=== PATIENT | female | born 1980 | race Caucasian/White ===

== ENCOUNTER 2017-02-13 09:30 | Inpatient (IN) | payer OTHER, SELFPAY ==
[2017-02-13] MEDS ORDERED: Acetaminophen 500 MG TAB ONE (10:02)
[2017-02-13] MEDS ORDERED: Ketorolac Tromethamine 30 MG/ML VIAL ONE (10:02)
--- NOTE | 2017-02-13 10:16 | RAD ---
AP VIEW OF THE CHEST: INDICATION: Concern for renal infection, chest pain, and chronic back pain. FINDINGS/IMPRESSION: Lungs are clear. Cardiomediastinal silhouette is normal. No acute osseous abnormality is evident. Exam is not appreciably changed from the comparison dated 02/14/16. POS: [facility]
[2017-02-13] MEDS ORDERED: Azithromycin 500 MG in Sodium Chloride 0.9% 250 ML 250 ML IVPB ONE (10:30)
[2017-02-13 10:34] LABS: #Lymphocytes 0.5 thou/uL (1.20-3.40); #Monocytes 0.6 thou/uL (0.11-0.59); #Neutrophils 5.1 thou/uL (1.40-6.50); %Basophils 0.4 % (0.0-1.0); %Eosinophils 0.6 % (0.0-10.0); %Lymphocytes 7.9 % (21.0-51.0); %Monocytes 9.7 % (0.0-10.0); Hematocrit 41.8 % (36.0-47.0); Mean Platelet Volume 6.6 fL (7.4-10.4); White Blood Cell (WBC) Count 6.3 thou/uL (4.8-10.8)
[2017-02-13 10:39] LABS: Bilirubin Negative (Negative); Blood, Urine Moderate (Negative); Glucose, Urine (Dipstick) Negative (Negative); Ketone, Urine Negative (Negative); Nitrite Negative (Negative); Protein, Urine (Dipstick) Negative (Neg-Trace); Urobilinogen 0.2 mg/dL (0.2-1.0)
[2017-02-13 10:42] LABS: Bacteria/HPF None Seen HPF (None Seen); Hyaline Casts/LPF 0-3 HYALINE CAST LPF (0-3 Hyaline); WBC/HPF 0-3 HPF (0-3)
[2017-02-13 10:43] LABS: Lactic Acid - Sepsis 2.3 mmol/L (0.5-2.2)
[2017-02-13 10:47] LABS: ALT (SGPT) 21 U/L (8-55); AST (SGOT) 18 U/L (5-34); Alkaline Phosphatase 71 U/L (40-150); Anion Gap 14 mmol/L (10-20); BUN (Urea Nitrogen) 9 mg/dL (7.0-18.7); Bilirubin, Total 0.3 mg/dL (0.2-1.2); CK (CPK) 111 U/L (29-168); Calc. Creatinine Clearance 0 mL/min (70-130); Carbon Dioxide 27 mmol/L (22-29); Chloride 101 mmol/L (98-107); Estimated GFR-MDRD Greater than 90; Globulin 2.6 g/dL (2.4-3.5); Lipase 38 U/L (8-78); Protein, Total 6.7 g/dL (6.0-8.3)
[2017-02-13 10:51] LABS: Troponin I Less than 0.010 ng/mL (< 0.028)
[2017-02-13] MEDS ORDERED: Piperacillin/Tazobactam 3.375 GM in Sodium Chloride 0.9% 100 ML IVPB ONE (13:00)
[2017-02-13] MEDS ORDERED: Ondansetron HCl/PF 4 MG/2 ML Vial ONE (14:24)
[2017-02-13] MEDS ORDERED: Ondansetron HCl/PF 4 MG/2 ML Vial IVP PRN (17:55)
[2017-02-13] MEDS ORDERED: Loperamide HCl 2 MG CAP PO PRN (17:55)
[2017-02-13] MEDS: Acetaminophen 325 MG TAB PO PRN (18:09)
[2017-02-13] MEDS: Sodium Chloride 0.9% 1,000 ML IV SCH (18:09)
[2017-02-13 18:16] VITALS: BMI 23.7
--- NOTE | 2017-02-13 20:24 | HP ---
DATE OF ADMISSION: 02/13/2017 CHIEF COMPLAINT: Fever, cough, generalized weakness, muscle aches, and diarrhea. HISTORY OF PRESENT ILLNESS: The patient is a 36-year-old female, who started getting sick yesterday with feeling bad and some productive cough with mucus mostly fever up to 102.3 and chills, some nausea, no vomiting, no abdominal pain. She started having watery diarrhea while in the emergen cy room and also she complains about a lot of muscle aches all over her body and a sore throat and so me nasal congestion. She was admitted to this hospital and she had full-blown sepsis just recently a nd because of a hypotension, she presented with tachycardia. We decided to admit her for observation . PAST MEDICAL HISTORY: 1. Frequent urinary tract infection. 2. Migraine headaches. 3. Chronic low back pain. 4. Pyelonephritis. PAST SURGICAL HISTORY: 1. Back surgery x5: 2. Repair of the ureter. 3. History of lung puncture. ALLERGIES: DEMEROL. SOCIAL HISTORY: She smokes half a pack per day for at least 20 years. She denies any alcohol use or illicit drug use. FAMILY HISTORY: Father had lung cancer and he at the age of 54 and the mother has breast cancer . MEDICATIONS: None. REVIEW OF SYSTEMS: CONSTITUTIONAL: Positive for fever and chills. ENT: Positive for nasal congestion and sore throat. CARDIOVASCULAR: Negative for chest pain and palpitations. PULMONARY: Positive for cough and some shortness of breath. GASTROINTESTINAL: Positive for nausea. Negative for vomiting. Positive for watery diarrhea. GENITOURINARY: Negative for dysuria or frequency. NEUROLOGIC: Negative for focal weakness or seizures. MUSCULOSKELETAL: Positive for generalized muscle aches. PSYCHIATRIC: Negative for anxiety and depression. PRIMARY CARE PHYSICIAN: None. SURROGATE DECISION MAKER: MotherAleah. PHYSICAL EXAMINATION: VITAL SIGNS: Blood pressure is 97/68, pulse is 87, and respiratory rate is 16. HEENT: Head is atraumatic, normocephalic. Eyes are PERRLA. Conjunctivae pinkish. Sclerae nonicter ic. Oral mucosa is moist. Throat slightly swollen and mildly erythematous, no exudates. NECK: Supple, no lymphadenopathy. LUNGS: Clear. HEART: S1 and S2 normal. No S3, no S4, no any murmur. ABDOMEN: Soft, nontender, bowel sounds are present, no organomegaly. EXTREMITIES: No clubbing, cyanosis, or edema. NEUROLOGIC: She is alert and oriented x4. There is not any sensory motor deficits are present. Alternative Medicine Practitioner nial nerves are intact. She is able to answer all my questions properly. LABORATORY AND X-RAY FINDINGS: Showed a white count of 6.3, hemoglobin 13.9, hematocrit 41.8, platel et count is 247. Chemistry within normal limits. Lactic acid was 2.3 rechecked it is down to 1.0. The rest of chemistry within normal limits. Urinalysis showed yellow urine clear clarity, pH of 7.0, specific gravity 1.024, positive for moderate amount of blood, 7-10 RBCs, and 4-6 squamous epithelia l cells, otherwise within normal limits. Influenza type A positive, influenza type B negative. Ches t x-ray personally, reviewed by me, did not show any acute abnormalities. IMPRESSION: Hypotension with positive testing for influenza, rule out sepsis. The patient was tachy cardic, hypotensive, and she had temperature up to 102.3. She had blood cultures done. She is place d on Zosyn and azithromycin by the emergency room physician. Also, she will have Tamiflu 75 mg twice a day. We will rehydrate her. She had IV fluids in the emergency room and she will be on normal sa line at 100 mL per hour. She will have Imodium for diarrhea and Zofran for nausea. She will be admi tted to telemetry floor. Condition is fair. Activity: Bed rest and bathroom privileges Tylenol p.r .n. for temperature and muscle aches and if she is negative for sepsis in the next 24 hours, probably she can be discharged home and continue her on Tamiflu.
[2017-02-13] MEDS: Oseltamivir 75 MG CAP PO SCH (20:49)
[2017-02-14] MEDS: Acetaminophen 325 MG TAB PO PRN ×2 (00:24→10:32)
[2017-02-14] MEDS ORDERED: Ondansetron ODT 4 MG TAB PO PRN (00:45)
[2017-02-14 05:21] LABS: #Eosinphils 0.2 thou/uL (0.0-0.7); #Lymphocytes 1.4 thou/uL (1.20-3.40); #Monocytes 0.4 thou/uL (0.11-0.59); #Neutrophils 3.3 thou/uL (1.40-6.50); %Basophils 0.4 % (0.0-1.0); %Eosinophils 2.9 % (0.0-10.0); %Lymphocytes 26.7 % (21.0-51.0); %Monocytes 7.1 % (0.0-10.0); Hematocrit 35.9 % (36.0-47.0); Red Blood Cell (RBC) Count 3.57 mill/uL (4.20-5.40); White Blood Cell (WBC) Count 5.2 thou/uL (4.8-10.8)
[2017-02-14 05:37] LABS: Anion Gap 8 mmol/L (10-20); BUN (Urea Nitrogen) 6 mg/dL (7.0-18.7); Calc. Creatinine Clearance 147 mL/min (70-130); Calcium 7.7 mg/dL (7.8-10.44); Carbon Dioxide 23 mmol/L (22-29); Chloride 108 mmol/L (98-107); Estimated GFR-MDRD Greater than 90
[2017-02-14] MEDS: Sodium Chloride 0.9% 1,000 ML IV SCH ×2 (06:09→13:55)
[2017-02-14] MEDS: Oseltamivir 75 MG CAP PO SCH ×2 (09:07→22:35)
[2017-02-14] MEDS: Enoxaparin Sodium 40 MG/0.4 ML SYRINGE SC SCH (09:08)
--- NOTE | 2017-02-14 13:29 | PDOC.PN ---
- Subjective Encounter Start Date: 02/14/17 Encounter Start Time: 13:28 Subjective: seen and examined feeling better - Objective Resuscitation Status: Resuscitation Status FULL:Full Resuscitation Vital Signs & Weight: Vital Signs (12 hours) Temp Pulse Resp BP Pulse Ox 02/14/17 13:07 98.6 F 90 16 116/68 98 02/14/17 09:29 98.0 F 106 H 16 123/73 97 02/14/17 09:06 98.0 F 106 H 16 95 02/14/17 04:00 99.6 F 93 16 125/75 95 Weight Weight 141 lb 4.8 oz I&O: 02/13/17 02/14/17 02/15/17 06:59 06:59 06:59 Intake Total 2025 Output Total 1800 Balance 226 Result Diagrams: 02/14/17 04:13 02/14/17 04:13 Phys Exam - Physical Examination Constitutional: NAD HEENT: PERRLA, moist MMs, sclera anicteric, TM's clear Neck: no nodes, supple, full ROM Respiratory: no wheezing, no rales, no rhonchi, clear to auscultation bilateral Cardiovascular: RRR, no significant murmur Gastrointestinal: soft, no distention, positive bowel sounds Dx/Plan - Plan continue antibiotics, respiratory therapy will transition to oral antibiotics -: continue Tamiflu -: may transfer to Medical today -: Dispo planning * .
[2017-02-15] MEDS: Sodium Chloride 0.9% 1,000 ML IV SCH ×2 (00:37→08:17)
[2017-02-15] MEDS: Enoxaparin Sodium 40 MG/0.4 ML SYRINGE SC SCH (08:16)
[2017-02-15] MEDS: Acetaminophen 325 MG TAB PO PRN (08:19)
[2017-02-15] MEDS: Oseltamivir 75 MG CAP PO SCH (08:20)
--- NOTE | 2017-02-15 14:55 | DIS ---
DATE OF ADMISSION: 02/13/2017 DATE OF DISCHARGE: 02/15/2017 DISCHARGE DIAGNOSES: 1. Influenza A positive. 2. Systemic inflammatory response syndrome secondary to #1, resolving. 3. Hypotension secondarily to dehydration, resolved. 4. Tobacco use. CONSULTATIONS: None. PERTINENT LABORATORY AND X-RAY FINDINGS: Complete metabolic profile within normal limits. Lactic ac id level ranged between 1.0-2.3. Influenza A positive on 02/13/2017. Blood cultures x2 dated 2016 showed no growth at 48 hours. Portable chest x-ray dated 02/13/2017 showed no acute cardiopulmo nary process. HOSPITAL COURSE: The patient was admitted to the medical floor after presenting with criteria for SI RS in the context of influenza A antigen positive. The patient was placed on intravenous fluids as w ell as given broad spectrum IV antibiotic coverage, pending final culture results. The patient also was initiated on Tamiflu 75 mg b.i.d. The patient rapidly clinically improved with supportive measur es including antiemetics, IV fluids, and antipyretics. The patient overall clinically stabilized, to lerating regular oral intake with stable vital signs at the time of discharge. The patient ready for discharge on 02/15/2017. DISCHARGE MEDICATIONS: Tamiflu 75 mg 1 tab p.o. b.i.d. x5 days. FOLLOWUP: The patient may follow up with [facility] in [place], [place] and to call their office for a ppointment time and date. CONDITION ON DISCHARGE: Stable. ACTIVITY: Ad andrew. DIET: Regular. CODE STATUS: FULL. DISPOSITION: Home 02/15/2017
[2017-02-15 15:25] VITALS: BP 99/74; TEMP 98.3
== END 2017-02-15 15:30 | disposition home or self-care (01) | DRG 195 ==
LOC: ERS 09:30 → 2NO 17:48 → T4-B 02-14 17:06
PROVIDERS: ADMIT Internal Medicine; ATTEND Internal Medicine
DX: J10.1 Influenza due to other identified influenza virus with other respiratory manifestations (principal); I95.9 Hypotension, unspecified; F17.210 Nicotine dependence, cigarettes, uncomplicated; G43.909 Migraine, unspecified, not intractable, without status migrainosus; G89.29 Other chronic pain; M54.5 Low back pain; Z88.5 Allergy status to narcotic agent; F41.9 Anxiety disorder, unspecified; F32.9 Major depressive disorder, single episode, unspecified; E86.0 Dehydration
CPT/HCPCS: 36415; 71010; 80048; 80053; 81003; 81015; 82553; 83605; 83690; 84484; 85025; 87040; 93005; 96361; 96365; 96367; 96375; A4216; J0456; J1650; J1885; J2405; J2543; J3370; J7050

== ENCOUNTER 2021-04-27 20:15 | Emergency (ER) | payer SELFPAY ==
[2021-04-27] MEDS ORDERED: Morphine 4 MG/ML VIAL ONE (21:11)
[2021-04-27] MEDS ORDERED: Ondansetron PF 4 MG/2 ML Vial ONE (21:11)
[2021-04-27 21:28] LABS: #Basophils 0.1 thou/uL (0.0-0.2); #Eosinphils 0.3 thou/uL (0.0-0.7); #Lymphocytes 3.3 thou/uL (1.20-3.40); #Monocytes 0.9 thou/uL (0.11-0.59); #Neutrophils 7.6 thou/uL (1.40-6.50); %Basophils 0.7 % (0.0-1.0); %Eosinophils 2.8 % (0.0-10.0); %Lymphocytes 26.9 % (21.0-51.0); %Monocytes 7.5 % (0.0-10.0); %Neutrophils 62.1 % (42.0-75.0); Hemoglobin 13.4 g/dL (12.0-16.0); Mean Corpuscular HGB CONC 32.1 g/dL (32.0-36.0); Mean Corpuscular Hemoglobin 32.5 pg (27.0-31.0); Platelet Count 318 thou/uL (130-400); RBC Distribution Width 11.7 % (11.5-14.5); Red Blood Cell (RBC) Count 4.13 mill/uL (4.20-5.40); White Blood Cell (WBC) Count 12.3 thou/uL (4.8-10.8)
[2021-04-27 21:54] LABS: ALT (SGPT) 14 U/L (8-55); AST (SGOT) 14 U/L (5-34); Albumin 4.1 g/dL (3.5-5.0); Alkaline Phosphatase 91 U/L (40-110); Anion Gap 14 mmol/L (10-20); BUN (Urea Nitrogen) 12 mg/dL (7.0-18.7); Bilirubin, Total 0.5 mg/dL (0.2-1.2); Calc. Creatinine Clearance 0 mL/min (70-130); Calcium 9.1 mg/dL (7.8-10.44); Carbon Dioxide 23 mmol/L (22-29); Chloride 103 mmol/L (98-107); Globulin 2.8 g/dL (2.4-3.5); Glucose 89 mg/dL (70-105); Lipase 26 U/L (8-78); Potassium 3.8 mmol/L (3.5-5.1); Protein, Total 6.9 g/dL (6.0-8.3); Sodium 136 mmol/L (136-145)
[2021-04-27 22:44] LABS: Bilirubin Negative (Negative); Blood, Urine Negative (Negative); Clarity Clear (Clear); Glucose, Urine (Dipstick) Normal (Negative); Ketone, Urine Negative (Negative); Leukocyte Negative Leu/uL (Negative); Nitrite Negative (Negative); Protein, Urine (Dipstick) Negative (Neg-Trace); Specific Gravity, Urine 1.027 (1.002-1.036); Urobilinogen Normal mg/dL (Less than 2); pH, Urine 6.5 (5.0-9.0)
== END 2021-04-27 23:11 | disposition home or self-care (01) ==
LOC: ERS 20:15
DX: N93.8 Other specified abnormal uterine and vaginal bleeding (principal); R10.30 Lower abdominal pain, unspecified; Z87.891 Personal history of nicotine dependence
CPT/HCPCS: 36415; 51701; 80053; 81003; 83605; 83690; 84702; 85025; 96374; 96375; J2270; J2405